=== PATIENT | male | born 1955 | race Caucasian/White ===

== ENCOUNTER 2023-11-22 11:25 | Emergency (ER) | payer MEDICARE, OTHER, SELFPAY ==
[2023-11-22 11:29] VITALS: BP 158/78
--- NOTE | 2023-11-22 13:38 | ED.GENMED ---
History of Present Illness
General
Chief Complaint: Musculo-Skeletal Complaint
Time Seen by Provider: 11/22/23 11:49
History of Present Illness
History of Present Illness:
68-year-old male presents the emergency department for evaluation of left medial knee pain ongoing for the past several weeks. Pain seems to wax and wane but over the past few days has been worsening. Denies any falls or direct trauma. Is been
taking ibuprofen without relief
Review of Systems
Review of Systems
Allergies reviewed?: Yes
All Other Systems: ROS reviewed and negative except as documented in HPI and ROS
Phy Exam
Physical Exam
Physical Exam:
GEN: Well appearing, NAD, WDWN
HEENT: Oral mucosa moist, no scleral icterus
Cardiac: Regular rate
Lung: No respiratory distress, no tachypnea
MSK: No gross deformity or injuries. Left knee range of motion is normal without pain. There is mild tenderness to the medial joint line, no medial/valgus stress laxity
Skin: Good color, no pallor or jaundice, no rashes
Neuro: AO x3, moves all extremities freely
Psych: Calm, cooperative
Course
Orders/Labs/Results
Orders:
Orders
11/22/23 13:01
CR Knee - Left 4 Or More View* Urgent
Comment:
Reason For Exam: medial pain
Vital Signs
Initial and Last Documented VS:
Initial Vital Signs
Temp Pulse Resp BP Pulse Ox
98.7 F 65 16 158/78 96
11/22/23 11:29 11/22/23 11:29 11/22/23 11:29 11/22/23 11:29 11/22/23 11:29
Last Documented Vital Signs
Temp Pulse Resp BP Pulse Ox
98.7 F 72 16 155/81 98
11/22/23 11:29 11/22/23 13:45 11/22/23 13:45 11/22/23 13:45 11/22/23 13:45
MDM/Problems Addressed
MDM/Problems Addressed:
Likely pain secondary to arthritis, possible chronic medial meniscal tear. Discussed use of NSAIDs and outpatient orthopedic follow-up
*Critical Care Note
Total Time (30-74mins, 75-104mins- exclusive of procedures): Not Applicable
ED Attending Note
-
Portions of this chart may have been created with voice recognition software.� Occasional wrong word or��sound alike� substitutions may have occurred due to the inherent limitations of voice recognition software.
Discharge Plan
Departure
Patient Disposition: Home (Routine Discharge)
Date of Disposition: 11/22/23
Time of Disposition: 13:39
Patient with high blood pressure during this ER visit?: No
Discharge Problem:
Arthritis of knee, left
Instructions: Knee Pain (DC)
Prescriptions:
New
celecoxib [Celebrex] 200 mg capsule
200 mg PO BID Qty: 30 0RF
oxycodone-acetaminophen [Percocet] 5-325 mg tablet
1 tab PO Q6HPRN PRN (Reason: pain) Qty: 8 0RF
Referrals:
Jefry Reynolds, DO [Family Provider] -
Bowen Mejía MD [Active] - Call in 1-3 days for appt
Interventions
Interventions:
*Risk Screen - Suicide Last Done: 11/22/23 11:29
*General Assessment Last Done: 11/22/23 11:29
*Neglect/Abuse Screening Last Done: 11/22/23 11:29
ED- Fall Risk Assessment Last Done: 11/22/23 13:45
*ED COVID-19 Vaccine History Last Done: 11/22/23 12:02
*Nursing Disposition Last Done: 11/22/23 13:45
ED-Musculoskeletal Assessment Last Done: 11/22/23 12:02
Discharge Date and Time
Discharge Date/Time: 11/22/23 13:48
Print Language: IRANIAN
[2023-11-22 13:45] VITALS: BP 155/81
== END 2023-11-22 13:48 | disposition home or self-care (01) ==
LOC: EMR 11:25
PROVIDERS: EMERGENCY PHYSICIAN Student in an Organized Health Care Education/Training Program; FAMILY PHYSICIAN Family Medicine
DX: M17.12 Unilateral primary osteoarthritis, left knee (principal)
CPT/HCPCS: 99283; 73564

== ENCOUNTER → 2023-12-14 11:17 | Outpatient (REF) | payer MEDICARE, OTHER, SELFPAY | LOC: HWRAD 11:17 | PROVIDERS: ATTENDING PHYSICIAN Family Medicine | DX: M54.9 Dorsalgia, unspecified (principal); M25.559 Pain in unspecified hip | CPT/HCPCS: 72100; 73522 ==

== ENCOUNTER 2024-12-13 06:31 | Day surgery (SDC) | payer MEDICARE, OTHER, SELFPAY | END 2024-12-13 10:47 | disposition home or self-care (01) | LOC: GI 06:31 | PROVIDERS: ATTENDING PHYSICIAN Internal Medicine Gastroenterology | DX: Z12.11 Encounter for screening for malignant neoplasm of colon (principal); D12.2 Benign neoplasm of ascending colon; D12.3 Benign neoplasm of transverse colon; D12.5 Benign neoplasm of sigmoid colon; K57.30 Diverticulosis of large intestine without perforation or abscess without bleeding; K62.1 Rectal polyp; K31.89 Other diseases of stomach and duodenum; R12 Heartburn; Z83.719 Family history of colon polyps, unspecified | CPT/HCPCS: 45385; 45384; 45380; 45381; 43239; 88305; 88342 ==